=== PATIENT | female | born 1945 | race Caucasian/White ===

== ENCOUNTER 2018-10-24 12:27 | Inpatient (IN) | payer OTHER ==
--- NOTE | 2018-10-24 12:48 | PDOC ---
Rapid Medical Evaluation Time Seen by Provider: 10/24/18 12:37 Medical Evaluation: Allergies Allergy/AdvReac Type Severity Reaction Status Date / Time Penicillins Allergy Verified 07/19/13 14:00 10/24/18 12:37 I have seen and briefly examined the patient The patient is a 73 y/o F who presents to the ER after receiving a phone call from Dr. Pastor for low H&H. Asymptomatic at this time Exam: Ambulatory, pale, Lungs CTAB Orders: Labs, EKG, CXR, T&S Pt to proceed to the ER for further evaluation Discharge Disposition - Diagnosis Abnormal laboratory test - Referrals - Patient Instructions - Post Discharge Activity
[2018-10-24 15:21] LABS: EPI CELLS 0.4 /HPF (0-5/HPF); HYALINE CASTS 0 /lpf (0-8); PH,URINE 5.5 (5.0-8.0); URINE APPEARANCE CLEAR; URINE BACTERIA 25.9 /hpf (NEGATIVE); URINE BILIRUBIN NEGATIVE (NEGATIVE); URINE COLOR YELLOW; URINE GLUCOSE (UA) NEGATIVE (NEGATIVE); URINE KETONE NEGATIVE (NEGATIVE); URINE LEUK ESTERASE 1+ (NEGATIVE); URINE NITRITE NEGATIVE (NEGATIVE); URINE PROTEIN NEGATIVE (NEGATIVE); URINE RBC 2 /hpf (0-4); URINE UROBILINOGEN 0.2 mg/dL (0.2-1.0); URINE WBC 3 /hpf (0-5)
[2018-10-24 15:32] LABS: INR 0.97 (0.83-1.09); PROTHROMBIN TIME (PATIENT) 11.4 SEC (9.7-13.0)
[2018-10-24 15:46] LABS: ALBUMIN 3.8 g/dl (3.4-5.0); BILIRUBIN,TOTAL 0.3 mg/dL (0.2-1); BLOOD UREA NITROGEN 31.7 mg/dL (7-18); CALCIUM 8.9 mg/dL (8.5-10.1); POTASSIUM 4.3 mmol/L (3.5-5.1); TOT PROT 6.7 g/dl (6.4-8.2)
[2018-10-24 16:01] LABS: BASO % 1.1 % (0-2.0); EOS % 2.9 % (0-4.5); HEMATOCRIT 23.1 % (32.4-45.2); LYMPH % 23.4 % (8-40); MCHC 27.6 g/dl (32.0-36.0); MEAN PLT VOLUME 8.7 fl (7.5-11.1); MONO % 9.3 % (3.8-10.2); NEUT % 63.3 % (42.8-82.8); PLATELET COUNT 353 K/MM3 (134-434); RBC 3.67 M/mm3 (3.60-5.2); RDW 21.4 % (11.6-15.6); WHITE BLOOD COUNT 5.2 K/mm3 (4.0-10.0)
[2018-10-24 16:03] LABS: MCH 17.4 pg (25.7-33.7)
[2018-10-24 16:05] LABS: HEMOGLOBIN 6.4 GM/dL (10.7-15.3)
[2018-10-24 16:55] LABS: ANISOCYTOSIS 3+; MACROCYTOSIS 0; OVALOCYTE 1+; PLATELET ESTIMATE NORMAL
[2018-10-24] MEDS ORDERED: PANTOPRAZOLE SODIUM 40 MG VIAL IVPUSH ONE ×2 (18:55→22:01)
--- NOTE | 2018-10-24 19:16 | PDOC ---
History of Present Illness - History of Present Illness Initial Comments: Ms. Fernandez is a 73F sent to the ED by her PCP (Dr. Carbajal) for abnormal labs. She reports that she was scheduled for a podiatric surgery next week and went to her PCP last week for pre-operative clearance. Today Dr. Carbajal called her and stated that her hemoglobin was 6.4 and instructed her to go to the ED. She reports fatigue and shortness of breath on exertion over the past week. Denies headache, dizziness. Denies hemoptysis, hematemesis, hematochezia, melena. Reports limited fruits and vegetables in her diet. Reports taking 5 advil pills QD. PMH: HTN, anxiety SocHx: 18 pack year smoking hx <Rob Sepulveda - Last Filed: 10/24/18 21:50> <Lindsey Key - Last Filed: 10/24/18 22:07> - General Chief Complaint: Blood Transfusion Stated Complaint: SENT BY PCP / DX ANEMIA Time Seen by Provider: 10/24/18 15:00 Past History - Past Medical History Anemia: No Asthma: No Cancer: No Cardiac Disorders: No CVA: No COPD: No CHF: No Dementia: No Diabetes: No GI Disorders: No Disorders: No HTN: Yes (on medication) Hypercholesterolemia: Yes (on meds) Kidney Stones: No Liver Disease: No Seizures: No Other medical history: TIA - Surgical History Abdominal Surgery: Yes (hysterectomy) Appendectomy: No Cardiac Surgery: No Cholecystectomy: No Lung Surgery: No Neurologic Surgery: No Orthopedic Surgery: Yes (SURGERY ON RT. SHOULDER 5 YRS. 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,last drink 1 yo) Drug/Substance Use Hx: Yes ( started a few years ago,then substited for Xanax 1 yo.) Substance Use Type: Cocaine, Opiates, Tranquilizers Hx Substance Use Treatment: Yes (completed 28 days [place] program about 9 yo.) <Rob Sepulveda - Last Filed: 10/24/18 21:50> <Lindsey Key - Last Filed: 10/24/18 22:07> - Past Medical History Allergies/Adverse Reactions: Allergies Allergy/AdvReac Type Severity Reaction Status Date / Time Penicillins Allergy Verified 07/19/13 14:00 Home Medications: Ambulatory Orders Atorvastatin Ca [Lipitor] 20 mg PO HS 07/24/13 Lisinopril [Prinivil] 10 mg PO DAILY 07/24/13 Metoprolol Succinate [Toprol XL -] 50 mg PO BID 07/24/13 Pantoprazole Sodium [Protonix -] 40 mg PO DAILY 07/24/13 Escitalopram Oxalate [Lexapro -] 10 mg PO DAILY 10/24/18 Review of Systems - Review of Systems Is the patient limited Khmer proficient: No Constitutional: Yes: See HPI, Malaise. No: Fever, Loss of Appetite, Night Sweats, Weakness, Unintentional Wgt. Loss HEENTM: Yes: See HPI. No: Nose Bleeding, Mouth Pain, Dental Problems Respiratory: Yes: See HPI, SOB with Exertion. No: Cough, SOB at Rest Cardiac (ROS): Yes: See HPI, Edema. No: Chest Pain, Irregular Heart Rate, Lightheadedness ABD/GI: Yes: See HPI. No: Abdominal Distended, Abd. Pain w/ defecation, Blood Streaked Bowels, Constipated, Diarrhea, Rectal Bleeding, Tarry Stools : Yes: See HPI. No: Dysuria, Discharge Musculoskeletal: Yes: See HPI, Muscle Pain (bilateral lower extremities ). No: Back Pain Integumentary: Yes: See HPI. No: Bruising Neurological: Yes: See HPI. No: Headache, Dizziness Endocrine: No: Symptoms Reported Hematologic/Lymphatic: Yes: Anemia <Rob Sepulveda - Last Filed: 10/24/18 21:50> *Physical Exam - Vital Signs Last Vital Signs Temp Pulse Resp BP Pulse Ox 98.2 F 85 18 121/68 98 10/24/18 18:44 10/24/18 18:44 10/24/18 18:48 10/24/18 18:44 10/24/18 18:48 - Physical Exam General Appearance: Yes: Appropriately Dressed, Obese. No: Mild Distress HEENT: positive: EOMI, KASSI. negative: Pale Conjunctivae Neck: positive: Trachea midline. negative: Tender Respiratory/Chest: positive: Lungs Clear, Normal Breath Sounds. negative: Chest Tender, Respiratory Distress Cardiovascular: positive: Regular Rhythm, Regular Rate Vascular Pulses: Dorsalis-Pedis (R): 2+, Doralis-Pedis (L): 2+ Gastrointestinal/Abdominal: positive: Normal Bowel Sounds, Soft. negative: Tender Rectal Exam: positive: heme positive stool Musculoskeletal: positive: Normal Inspection. negative: CVA Tenderness Extremity: positive: Normal Capillary Refill, Pedal Edema, Calf Tenderness Integumentary: positive: Normal Color, Dry, Warm Neurologic: positive: Fully Oriented, Alert, Normal Response, Motor Strength 5/5 <Rob Sepulveda - Last Filed: 10/24/18 21:50> - Vital Signs Last Vital Signs Temp Pulse Resp BP Pulse Ox 98.0 F 90 20 124/52 L 100 10/24/18 21:07 10/24/18 21:07 10/24/18 21:07 10/24/18 21:07 10/24/18 21:07 <Lindsey Key - Last Filed: 10/24/18 22:07> ED Treatment Course - LABORATORY CBC & Chemistry Diagram: 10/24/18 15:05 10/24/18 15:05 - ADDITIONAL ORDERS Additional order review: Laboratory Results 10/24/18 10/24/18 10/24/18 18:20 15:05 15:05 PT with INR INR Sodium 143 Potassium 4.3 Chloride 113 H Carbon Dioxide 22 Anion Gap 7 L BUN 31.7 H Creatinine 1.0 Est GFR (CKD-EPI)AfAm 64.27 Est GFR (CKD-EPI)NonAf 55.45 Random Glucose 88 Calcium 8.9 Total Bilirubin 0.3 AST 8 L ALT 13 Alkaline Phosphatase 60 Total Protein 6.7 Albumin 3.8 Urine Color Urine Appearance Urine pH Ur Specific [place] Urine Protein Urine Glucose (UA) Urine Ketones Urine Blood Urine Nitrite Urine Bilirubin Urine Urobilinogen Ur Leukocyte Esterase Urine WBC (Auto) Urine RBC (Auto) Urine Casts (Auto) U Epithel Cells (Auto) Urine Bacteria (Auto) Stool Occult Blood Positive Blood Type AB NEGATIVE Antibody Screen Negative Crossmatch See Detail 10/24/18 10/24/18 15:05 15:05 PT with INR 11.40 INR 0.97 Sodium Potassium Chloride Carbon Dioxide Anion Gap BUN Creatinine Est GFR (CKD-EPI)AfAm Est GFR (CKD-EPI)NonAf Random Glucose Calcium Total Bilirubin AST ALT Alkaline Phosphatase Total Protein Albumin Urine Color Yellow Urine Appearance Clear Urine pH 5.5 D Ur Specific [place] 1.012 Urine Protein Negative Urine Glucose (UA) Negative Urine Ketones Negative Urine Blood Negative Urine Nitrite Negative Urine Bilirubin Negative Urine Urobilinogen 0.2 Ur Leukocyte Esterase 1+ H Urine WBC (Auto) 3 Urine RBC (Auto) 2 Urine Casts (Auto) 0 U Epithel Cells (Auto) 0.4 Urine Bacteria (Auto) 25.9 Stool Occult Blood Blood Type Antibody Screen Crossmatch 10/24/18 15:05 RBC 3.67 MCV 63.0 L MCHC 27.6 L RDW 21.4 H MPV 8.7 D Neutrophils % 63.3 Lymphocytes % 23.4 Monocytes % 9.3 Eosinophils % 2.9 Basophils % 1.1 <Rob Sepulveda - Last Filed: 10/24/18 21:50> - LABORATORY CBC & Chemistry Diagram: 10/24/18 15:05 10/24/18 15:05 - ADDITIONAL ORDERS Additional order review: Laboratory Results 10/24/18 10/24/18 10/24/18 18:30 18:30 18:20 PT with INR INR Sodium Potassium Chloride Carbon Dioxide Anion Gap BUN Creatinine Est GFR (CKD-EPI)AfAm Est GFR (CKD-EPI)NonAf Random Glucose Calcium Total Bilirubin AST ALT Alkaline Phosphatase Creatine Kinase 101 Troponin I < 0.02 Total Protein Albumin Urine Color Urine Appearance Urine pH Ur Specific [place] Urine Protein Urine Glucose (UA) Urine Ketones Urine Blood Urine Nitrite Urine Bilirubin Urine Urobilinogen Ur Leukocyte Esterase Urine WBC (Auto) Urine RBC (Auto) Urine Casts (Auto) U Epithel Cells (Auto) Urine Bacteria (Auto) Stool Occult Blood Positive Blood Type AB NEGATIVE Antibody Screen Crossmatch 10/24/18 10/24/18 10/24/18 15:05 15:05 15:05 PT with INR INR Sodium 143 Potassium 4.3 Chloride 113 H Carbon Dioxide 22 Anion Gap 7 L BUN 31.7 H Creatinine 1.0 Est GFR (CKD-EPI)AfAm 64.27 Est GFR (CKD-EPI)NonAf 55.45 Random Glucose 88 Calcium 8.9 Total Bilirubin 0.3 AST 8 L ALT 13 Alkaline Phosphatase 60 Creatine Kinase Troponin I Total Protein 6.7 Albumin 3.8 Urine Color Yellow Urine Appearance Clear Urine pH 5.5 D Ur Specific [place] 1.012 Urine Protein Negative Urine Glucose (UA) Negative Urine Ketones Negative Urine Blood Negative Urine Nitrite Negative Urine Bilirubin Negative Urine Urobilinogen 0.2 Ur Leukocyte Esterase 1+ H Urine WBC (Auto) 3 Urine RBC (Auto) 2 Urine Casts (Auto) 0 U Epithel Cells (Auto) 0.4 Urine Bacteria (Auto) 25.9 Stool Occult Blood Blood Type AB NEGATIVE Antibody Screen Negative Crossmatch See Detail 10/24/18 15:05 PT with INR 11.40 INR 0.97 Sodium Potassium Chloride Carbon Dioxide Anion Gap BUN Creatinine Est GFR (CKD-EPI)AfAm Est GFR (CKD-EPI)NonAf Random Glucose Calcium Total Bilirubin AST ALT Alkaline Phosphatase Creatine Kinase Troponin I Total Protein Albumin Urine Color Urine Appearance Urine pH Ur Specific [place] Urine Protein Urine Glucose (UA) Urine Ketones Urine Blood Urine Nitrite Urine Bilirubin Urine Urobilinogen Ur Leukocyte Esterase Urine WBC (Auto) Urine RBC (Auto) Urine Casts (Auto) U Epithel Cells (Auto) Urine Bacteria (Auto) Stool Occult Blood Blood Type Antibody Screen Crossmatch 10/24/18 15:05 RBC 3.67 MCV 63.0 L MCHC 27.6 L RDW 21.4 H MPV 8.7 D Neutrophils % 63.3 Lymphocytes % 23.4 Monocytes % 9.3 Eosinophils % 2.9 Basophils % 1.1 - RADIOLOGY Radiology Studies Ordered: Category Date Time Status CHEST PA & LAT [RAD] Stat Radiology 10/24/18 19:09 Ordered - Medications Given in the ED: ED Medications Discontinued Medications Generic Name Dose Route Start Last Admin Trade Name Vasuq PRN Reason Stop Dose Admin Pantoprazole Sodium 40 mg 10/24/18 18:55 10/24/18 20:00 Protonix Iv IVPUSH 10/24/18 18:56 40 mg ONCE ONE Administration <Lindsey Key - Last Filed: 10/24/18 22:07> Medical Decision Making - Medical Decision Making 10/24/18 1700 73F sent here by PCP for hemoglobin of 6.4. Reports SOB on exertion and fatigue , no other symptoms. Heme occult stool test was positive. We obtained CBC, CMP, CXR, and type and screen. Administered protonix. Spoke with Dr. Carbajal, the patient's PCP, who states his concern for the patient's low hemoglobin and would like the patient admitted for blood transfusion. We obtained consent for blood transfusion and plan to admit to the hospitalist service. This patient was signed out to Dr. Key and Dr. Lawrence. <Rob Sepulveda - Last Filed: 10/24/18 21:50> *DC/Admit/Observation/Transfer <Rob Sepulveda - Last Filed: 10/24/18 21:50> - Discharge Dispostion Decision to Admit order: Yes <Lindsey Key - Last Filed: 10/24/18 22:07> Diagnosis at time of Disposition: Abnormal laboratory test GI bleed Qualifiers: GI bleed type/associated pathology: unspecified gastrointestinal hemorrhage type Qualified Code(s): K92.2 - Gastrointestinal hemorrhage, unspecified Anemia Qualifiers: Anemia type: other cause Other causes of anemia: other cause, not classified Qualified Code(s): D64.89 - Other specified anemias - Discharge Dispostion Condition at time of disposition: Good
--- NOTE | 2018-10-24 19:38 | PDOC ---
Documentation entered by Hernan Gordon SCRIBE, acting as scribe for Lindsey Key MD. Lindsey Key MD: This documentation has been prepared by the Evan vivar Joel, SCRIBE, under my direction and personally reviewed by me in its entirety. I confirm that the documentation accurately reflects all work, treatment, procedures, and medical decision making performed by me. Attending Attestation - Resident Resident Name: Rob Sepulveda - ED Attending Attestation I have performed the following: I have examined & evaluated the patient, The case was reviewed & discussed with the resident, I agree w/resident's findings & plan, Exceptions are as noted - HPI HPI: 10/24/18 18:40 The patient is a 73 year old female with a significant PMH of HTN and TIA who presents to the emergency department from Dr. Sawyer office for evaluation of low H&H to receive a blood transfusion. The patient endorses some tiredness and SOB for 1 week but denies other complaints. The patient denies chest pain, headache and dizziness. Denies fever, chills, nausea, vomit, diarrhea and constipation. Denies dysuria, frequency, urgency and hematuria. Allergies: Penicillins Past surgical history: Hysterectomy. Social history: No reported cigarette, alcohol, or drug use. - Physicial Exam PE: 10/24/18 18:44 73-year-old female sent in by Dr. Carbajal for admission for anemia 73-year-old female resting on the gurney with no specific complaints at this time. Head normocephalic/atraumatic Eyes eomi,jerome , pale conjunctiva lungs cta b/l cvs [id number] abdomen protuberant,nontender rectal exam normal tone,no active bleeding skin warm and dry extremities bilateral LE edema, not pitting neuro axox3,ambulatory psych appropriate - Medical Decision Making 10/24/18 18:[address] Carbajal and he requested admission w hospitalist for blood transfusions and further workup pt signed consent for blood transfusion
[2018-10-24] MEDS ORDERED: PANTOPRAZOLE SODIUM 40 MG/100 ML BAG IVPB ONE ×2 (20:04→23:22)
--- NOTE | 2018-10-24 21:27 | HP ---
CHIEF COMPLAINT: asymptomatic anemia PCP: Solomon HISTORY OF PRESENT ILLNESS: 73F with pmh of HTN, HLD, h/o R-sided CVA, external hemorrhoids, chronic anxiety , chronic b/l knee pain referred to [facility] by PCP for outpatient CBC showing Hgb ~6.2. Patient was getting pre-op workup for Hammer-Toe surgery. Has complaint of fatigue, weakness for a few days. Has SOB with climbing up > 1flight of stairs, x1mo. Takes a handful of advils(5+ tablets) daily x1mo for chronic b/l knee pain. Denies hematemesis, melena, hematochezia, abd pain, diarrhea. Positive for chronic constipation. One episode of BRBPR in 2016. Reports having colonoscopies in the past. Colonscopy+EGD([facility], 2016) for BRBPR, with patient recalling no abn. Colonoscopy([facility], 2013) during bout of appendicitis, patient recalls no abn. ER course was notable for: (1) Hgb ~6.4 (2) (+)FOBT (3) EKG -- NSR (4) pRBC x2 ordered -- pending transfusion Recent Travel: PAST MEDICAL HISTORY: HTN, HLD, external hemorrhoids, chronic anxiety, chronic b/l knee pain PAST SURGICAL HISTORY: b/l knee, Left breast lumpectomy Social History: Smokinppd x 40ys, quit 10ys prior Alcohol: social Drugs: denies Family History: Colon Ca(mother dx @~60y/o) Allergies: Pencillin(claims peripheral swelling) Penicillins Allergy (Verified 07/19/13 14:00) HOME MEDICATIONS: Home Medications Medication Instructions Recorded Atorvastatin Ca [Lipitor] 20 mg PO HS 07/24/13 Lisinopril [Prinivil] 10 mg PO DAILY 07/24/13 Metoprolol Succinate [Toprol XL -] 50 mg PO BID 07/24/13 Pantoprazole Sodium [Protonix -] 40 mg PO DAILY 07/24/13 Escitalopram Oxalate [Lexapro -] 10 mg PO DAILY 10/24/18 REVIEW OF SYSTEMS CONSTITUTIONAL: positive for generalized weakness, malaise, lightheadedness Absent: fever, chills, diaphoresis HEENT: Absent: visual changes CARDIOVASCULAR: Absent: chest pain, palpitations, irregular heart rate, lightheadedness, peripheral edema RESPIRATORY: Absent: cough, shortness of breath, dyspnea with exertion, orthopnea, wheezing, stridor, hemoptysis GASTROINTESTINAL: Absent: abdominal pain, abdominal distension, nausea, vomiting, diarrhea, constipation, melena, hematochezia GENITOURINARY: Absent: dysuria, frequency, hematuria MUSCULOSKELETAL: chronic b/l knee pain Absent: myalgia, arthralgia, joint swelling, back pain, neck pain SKIN: Absent: pallor HEMATOLOGIC/IMMUNOLOGIC: Absent: easy bleeding, easy bruising ENDOCRINE: Absent: unexplained weight gain, unexplained weight loss, heat intolerance, cold intolerance NEUROLOGIC: Absent: headache, focal weakness or paresthesias, dizziness, unsteady gait, seizure, mental status changes, bladder or bowel incontinence PSYCHIATRIC: positive for chronic anxiety Absent: depression, suicidal or homicidal ideation, hallucinations. PHYSICAL EXAMINATION Vital Signs - 24 hr 10/24/18 10/24/18 10/24/18 12:36 18:44 18:48 Temperature 97.7 F 98.2 F Pulse Rate 84 Pulse Rate [ 85 Right Radial] Respiratory 18 18 18 Rate Blood Pressure 145/69 Blood Pressure 121/68 [Left Arm] O2 Sat by Pulse 98 98 98 Oximetry (%) GENERAL: Awake, alert, and fully oriented, in no acute distress. HEAD: Normal with no signs of trauma. EYES: extraocular movements intact, sclera anicteric, conjunctiva clear. No lid lag. Pale conjunctiva EARS, NOSE, THROAT: Moist mucous membranes. NECK: Normal range of motion, supple without lymphadenopathy, JVD, or masses. LUNGS: Breath sounds equal, clear to auscultation bilaterally. No wheezes, and no crackles. No accessory muscle use. HEART: Regular rate and rhythm, normal S1 and S2 without murmur, rub or gallop. ABDOMEN: Soft, nontender, not distended, nonTTP [id number], no guarding, no rebound, no masses. RECTAL: external mucosal folds, no blood in stool, no rectal masses palpated MUSCULOSKELETAL: Normal range of motion at all joints. No bony deformities or tenderness. No CVA tenderness. UPPER EXTREMITIES: 2+ pulses, warm, well-perfused. No cyanosis. No clubbing. No peripheral edema. LOWER EXTREMITIES: 2+ pulses, warm, well-perfused. No calf tenderness. No peripheral edema. NEUROLOGICAL: moving all extremities spontaneously, sensation and muscle strength are grossly normal PSYCHIATRIC: Cooperative. Good eye contact. Appropriate mood and affect. SKIN: Warm, dry, normal turgor, no rashes or lesions noted, normal capillary refill. Laboratory Results - last 24 hr 10/24/18 10/24/18 10/24/18 15:05 15:05 15:05 WBC 5.2 RBC 3.67 Hgb 6.4 L* Hct 23.1 L D MCV 63.0 L MCH 17.4 L D MCHC 27.6 L RDW 21.4 H Plt Count 353 D MPV 8.7 D Absolute Neuts (auto) 3.3 Neutrophils % 63.3 Lymphocytes % 23.4 Monocytes % 9.3 Eosinophils % 2.9 Basophils % 1.1 Nucleated RBC % 0 Hypochromia 2+ Platelet Estimate Normal Polychromasia 1+ Poikilocytosis 1+ Anisocytosis 3+ Microcytosis 3+ Macrocytosis 0 Ovalocytes 1+ Schistocytes 1+ PT with INR 11.40 INR 0.97 Sodium Potassium Chloride Carbon Dioxide Anion Gap BUN Creatinine Est GFR (CKD-EPI)AfAm Est GFR (CKD-EPI)NonAf Random Glucose Calcium Total Bilirubin AST ALT Alkaline Phosphatase Creatine Kinase Troponin I Total Protein Albumin Urine Color Yellow Urine Appearance Clear Urine pH 5.5 D Ur Specific [place] 1.012 Urine Protein Negative Urine Glucose (UA) Negative Urine Ketones Negative Urine Blood Negative Urine Nitrite Negative Urine Bilirubin Negative Urine Urobilinogen 0.2 Ur Leukocyte Esterase 1+ H Urine WBC (Auto) 3 Urine RBC (Auto) 2 Urine Casts (Auto) 0 U Epithel Cells (Auto) 0.4 Urine Bacteria (Auto) 25.9 Stool Occult Blood Blood Type Antibody Screen Crossmatch 10/24/18 10/24/18 10/24/18 15:05 15:05 18:20 WBC RBC Hgb Hct MCV MCH MCHC RDW Plt Count MPV Absolute Neuts (auto) Neutrophils % Lymphocytes % Monocytes % Eosinophils % Basophils % Nucleated RBC % Hypochromia Platelet Estimate Polychromasia Poikilocytosis Anisocytosis Microcytosis Macrocytosis Ovalocytes Schistocytes PT with INR INR Sodium 143 Potassium 4.3 Chloride 113 H Carbon Dioxide 22 Anion Gap 7 L BUN 31.7 H Creatinine 1.0 Est GFR (CKD-EPI)AfAm 64.27 Est GFR (CKD-EPI)NonAf 55.45 Random Glucose 88 Calcium 8.9 Total Bilirubin 0.3 AST 8 L ALT 13 Alkaline Phosphatase 60 Creatine Kinase Troponin I Total Protein 6.7 Albumin 3.8 Urine Color Urine Appearance Urine pH Ur Specific [place] Urine Protein Urine Glucose (UA) Urine Ketones Urine Blood Urine Nitrite Urine Bilirubin Urine Urobilinogen Ur Leukocyte Esterase Urine WBC (Auto) Urine RBC (Auto) Urine Casts (Auto) U Epithel Cells (Auto) Urine Bacteria (Auto) Stool Occult Blood Positive Blood Type AB NEGATIVE Antibody Screen Negative Crossmatch See Detail 10/24/18 10/24/18 18:30 18:30 WBC RBC Hgb Hct MCV MCH MCHC RDW Plt Count MPV Absolute Neuts (auto) Neutrophils % Lymphocytes % Monocytes % Eosinophils % Basophils % Nucleated RBC % Hypochromia Platelet Estimate Polychromasia Poikilocytosis Anisocytosis Microcytosis Macrocytosis Ovalocytes Schistocytes PT with INR INR Sodium Potassium Chloride Carbon Dioxide Anion Gap BUN Creatinine Est GFR (CKD-EPI)AfAm Est GFR (CKD-EPI)NonAf Random Glucose Calcium Total Bilirubin AST ALT Alkaline Phosphatase Creatine Kinase 101 Troponin I < 0.02 Total Protein Albumin Urine Color Urine Appearance Urine pH Ur Specific [place] Urine Protein Urine Glucose (UA) Urine Ketones Urine Blood Urine Nitrite Urine Bilirubin Urine Urobilinogen Ur Leukocyte Esterase Urine WBC (Auto) Urine RBC (Auto) Urine Casts (Auto) U Epithel Cells (Auto) Urine Bacteria (Auto) Stool Occult Blood Blood Type AB NEGATIVE Antibody Screen Crossmatch ASSESSMENT/PLAN: 73F with asymptomatic anemia likely 2/2 to chronic NSAID usage. # microcytic anemia > (+)FOBT - HOLD home NSAID - NPO - transfuse pRBC x2 - fu post-transfusion CBC - pantoprazole 80mg IV, then pantoprazole gtt - appreciate GI consult recommendations, or possible upper GI NEURO: # chronic anxiety - HOLD home Xanax # chronic depression - HOLD home escitalopram # h/o Right-sided CVA - restart home atoravstatin prior to discharge CARDIO: # no acutely active issues # chronic HTN # chronic HLD - cw home metoprolol 50mg BID - HOLD home lisinopril - HOLD home atorvastatin - monitor vitals q4h RESPIR: # no acutely active issues - monitor vitals q4h - titrate pO2 >92% GI: # upper GIB - pending GI consult - NPO - pantoprazole gtt FEN: - pantroprazole gtt - ADAT after GI consultation RENAL: > UA with (-)nitrite, 1+LE, WBC~3 - monitor and replete lytes HEME: # microcytic anemia possibly 2/2 chronic upper GI bleed - fu post-transfusion CBC DISPO: - to be determined Ed Morales, DO PGY-1 Medicine, PM Float [id number] 10/24/18 Visit type - Emergency Visit Emergency Visit: Yes ED Registration Date: 10/24/18 Care time: The patient presented to the Emergency Department on the above date and was hospitalized for further evaluation of their emergent condition. - New Patient This patient is new to me today: Yes Date on this admission: 10/25/18 - Critical Care Critical Care patient: No
--- NOTE | 2018-10-24 21:51 | PN ---
Teaching Attending Note Name of Resident: Ed Morales ATTENDING PHYSICIAN STATEMENT I saw and evaluated the patient. I reviewed the resident's note and discussed the case with the resident. I agree with the resident's findings and plan as documented. SUBJECTIVE: Seen and examined; please refer to resident note for further historical information. Briefly, this is a 73 y/o female sent in by her PCP for low Hb. She has no complaints but when pressed has been having stereotyped anemic symptoms 3 colonoscopies in the past reported as normal; no EGD report available but states she had one without gross abnormalities. No FH of GI malig. Denies any GI/vaginal bleeding but does have a FOBT+. Has been taking a good amount of advil for 6+ weeks (5-6/day) for her chronic leg and knee pain (has not seen ortho, no recent trauma, etc.). 2 units ordered in ER and they spoke with GI alkylation operator; she will be brought to the floor on the medicine service. 10 sys ROS done and negative aside from HPI PMH (HTN, HLD, Anxiety, Chronic Pain), PSH, FH, SH reviewed Home Medications Medication Instructions Recorded Atorvastatin Ca [Lipitor] 20 mg PO HS 07/24/13 Lisinopril [Prinivil] 10 mg PO DAILY 07/24/13 Metoprolol Succinate [Toprol XL -] 50 mg PO BID 07/24/13 Pantoprazole Sodium [Protonix -] 40 mg PO DAILY 07/24/13 Escitalopram Oxalate [Lexapro -] 10 mg PO DAILY 10/24/18 OBJECTIVE: VS, labs, imaging reviewed NAD, AAO, resting comfortably in bed RRR s1/2 no mgr Lungs CTAB, w/ sym exp NT ND +BS CN2-12 wnl, no fnd Legs enlarged with bilateral chronic dependent edema that is unchanged from baseline. EKG reviewed CXR reviewed ASSESSMENT AND PLAN: Patient sent in by PCP for anemia found to have a Hb 6 with likely UGIB 2/2 NSAID use; Dr Fine is following. Patient to be admitted to medicine. 1) UGIB -NPO, xf 2 units ordered in ER. Followup post XF CBC and closely trend Hb. Will need EGD with gastroenterology. Keeping on protonix drip, holding all AC. Not tachycardic and has not had any bleeding here. Would be helpful to obtain her old scope reports. 2) HTN -Hold CHIP; PRN management until resumes PO -Continue MS to avoid BB WD 3) Depression -Hold lexapro 4) HLD -Hold Atorva
[2018-10-24] MEDS ORDERED: ATORVASTATIN CA 20 MG TABLET (FP) PO SCH (22:00)
[2018-10-25] MEDS: PANTOPRAZOLE SODIUM 80 MG in SODIUM CHLORIDE 100 ML IVPB SCH ×3 (00:03→19:36)
[2018-10-25 02:25] LABS: HEMATOCRIT 23.1 % (32.4-45.2); MCH 19.1 pg (25.7-33.7); MCHC 29.4 g/dl (32.0-36.0); MEAN CELL VOLUME 64.9 fl (80-96); MEAN PLT VOLUME 8.5 fl (7.5-11.1); PLATELET COUNT 311 K/MM3 (134-434); RBC 3.56 M/mm3 (3.60-5.2); RDW 24.6 % (11.6-15.6); WHITE BLOOD COUNT 5.9 K/mm3 (4.0-10.0)
[2018-10-25 02:26] LABS: HEMOGLOBIN 6.8 GM/dL (10.7-15.3)
[2018-10-25] MEDS ORDERED: traZODone HCL 50 MG TABLET (FP) PO ONE (04:08)
[2018-10-25 08:36] LABS: BLOOD UREA NITROGEN 23.8 mg/dL (7-18); CALCIUM 8.7 mg/dL (8.5-10.1); CREATININE 0.9 mg/dL (0.55-1.3); MAGNESIUM 2.5 mg/dL (1.8-2.4); PHOSPHOROUS 3.6 mg/dL (2.5-4.9); POTASSIUM 4.3 mmol/L (3.5-5.1)
[2018-10-25 09:00] LABS: HEMATOCRIT 24.9 % (32.4-45.2); HEMOGLOBIN 7.4 GM/dL (10.7-15.3); MCHC 29.9 g/dl (32.0-36.0); MEAN CELL VOLUME 65.9 fl (80-96); MEAN PLT VOLUME 8.5 fl (7.5-11.1); PLATELET COUNT 283 K/MM3 (134-434); RBC 3.77 M/mm3 (3.60-5.2); RDW 25.4 % (11.6-15.6); WHITE BLOOD COUNT 5.1 K/mm3 (4.0-10.0)
[2018-10-25 09:07] LABS: MCH 19.7 pg (25.7-33.7)
[2018-10-25] MEDS ORDERED: LISINOPRIL 10 MG TABLET (FP) PO SCH (10:00)
[2018-10-25] MEDS ORDERED: ESCITALOPRAM OXALATE 10 MG TABLET (FP) PO SCH (10:00)
--- NOTE | 2018-10-25 10:44 | EKG ---
Test Reason : Blood Pressure : / mmHG Vent. Rate : 094 BPM Atrial Rate : 094 BPM P-R Int : 162 ms QRS Dur : 076 ms QT Int : 360 ms P-R-T Axes : 061 -08 015 degrees QTc Int : 450 ms NORMAL SINUS RHYTHM POSSIBLE LEFT ATRIAL ENLARGEMENT LEFT VENTRICULAR HYPERTROPHY ABNORMAL ECG NO PREVIOUS ECGS AVAILABLE Confirmed by SOL SANTANA, LEONARDO ([id number]) on 10/25/2018 10:43:48 AM Referred By: Confirmed By:LEONARDO HORTON MD
--- NOTE | 2018-10-25 11:00 | PN ---
Progress Note (short form) - Note Progress Note: admitted for anemia-noted incidentally on preop testing for hammertoe surgery received 2 units of PRBC overnight FOBT positive in er has been taking 4+ advils daily for arthritic pains CBC, BMP 10/25/18 08:38 10/25/18 07:44 Vital Signs Period Temp Pulse Resp BP Sys/Germain Pulse Ox Last 24 Hr 97.7 F-98.2 F 74-90 18-20 111-164/51-93 98-100 S1S2 RRR lungs cta abd soft nontender +bs no edema Anemia Depression HTN Obesity Osteoarthritis h/o CVA without residual deficits monitor h/h GI eval requested stop NSAIDs PPI Full liquid diet
--- NOTE | 2018-10-25 12:10 | CON.GI ---
Consult Consult Specialty:: Gastroenterology Referred by:: Dr Roman Reason for Consultation:: Microcytic anemia - History of Present Illness Chief Complaint: Sent to ER after Dr Carbajal discovered a Hb of 6.4 History of Present Illness: 73F was referred to the ER by Dr Carbajal after a CBC revealed a Hb of 6.4. She was seeking a preoperative clearance for podiatruic surgery. She denies any overt bleeding or melena. She moves her bowels daily. She take 5-6 Advil daily for arthritis pain. No abdominal pain. She does admit to fatigue and PHELPS recently. She has had 3 colonoscopies as her mother of coon cancer. She denies ever having had any polyps removed. She last had a colonoscopy 6 years ago at [facility] in [facility]. She has never had an EGD. She stopped drinking alcohol 4 years ago when her PMD attributed her fatty liver to alcohol. - History Source History Provided By: Patient Limitations to Obtaining History: No Limitations - Past Medical History ACTIVITIES LEADER: Yes: TIA Cardio/Vascular: Yes: HTN, Hyperlipdemia Hepatobiliary: Yes: Other (fatty liver) ...LMP: 04/25/85 Psych: Yes: Depression Rheumatology: Yes: Other (Osteoarthritis) Endocrine: Yes: Diabetes Mellitus, Other (morbid obesity) - Past Surgical History Past Surgical History: Yes: Breast Biopsy (Left breast lumpectomy for benign disease), Colonoscopy, Hysterectomy (TAHBSO done as BSO followed by [facility] for bleeding. 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 [employer] Place of : [facility] [place] History of Recent Travel: No Home Medications - Allergies Allergies/Adverse Reactions: Allergies Allergy/AdvReac Type Severity Reaction Status Date / Time Penicillins Allergy Verified 07/19/13 14:00 - Home Medications Home Medications: Ambulatory Orders Atorvastatin Ca [Lipitor] 20 mg PO HS 07/24/13 Lisinopril [Prinivil] 10 mg PO DAILY 07/24/13 Metoprolol Succinate [Toprol XL -] 50 mg PO BID 07/24/13 Pantoprazole Sodium [Protonix -] 40 mg PO DAILY 07/24/13 Escitalopram Oxalate [Lexapro -] 10 mg PO DAILY 10/24/18 Family Disease History - Family Disease History Family Disease History: Heart Disease: Father (CHF and ETOH), Mother ( colon cancer in her 60s), CA: Mother, Other: Father, Daughter (psoriatic arthritis) Review of Systems - Review of Systems Constitutional: reports: Lethargy, Malaise, Weakness Eyes: reports: No Symptoms HENT: reports: No Symptoms Neck: reports: No Symptoms Cardiovascular: reports: No Symptoms Respiratory: reports: Exercise Intolerance, SOB on Exertion Gastrointestinal: reports: Other (acid reflux) Musculoskeletal: reports: Joint Pain Physical Exam-GI Vital Signs: Vital Signs Temperature 98 F 10/25/18 07:00 Pulse Rate 74 10/25/18 07:00 Respiratory Rate 20 10/25/18 07:00 Blood Pressure 148/72 10/25/18 07:00 O2 Sat by Pulse Oximetry (%) 98 10/25/18 02:48 CBC,CMP WBC 5.1 K/mm3 (4.0-10.0) 10/25/18 08:38 RBC 3.77 M/mm3 (3.60-5.2) 10/25/18 08:38 Hgb 7.4 GM/dL (10.7-15.3) L 10/25/18 08:38 Hct 24.9 % (32.4-45.2) L 10/25/18 08:38 MCV 65.9 fl (80-96) L 10/25/18 08:38 MCH 19.7 pg (25.7-33.7) L 10/25/18 08:38 MCHC 29.9 g/dl (32.0-36.0) L 10/25/18 08:38 RDW 25.4 % (11.6-15.6) H 10/25/18 08:38 Plt Count 283 K/MM3 (134-434) 10/25/18 08:38 MPV 8.5 fl (7.5-11.1) 10/25/18 08:38 Absolute Neuts (auto) 3.3 K/mm3 (1.5-8.0) 10/24/18 15:05 Neutrophils % 63.3 % (42.8-82.8) 10/24/18 15:05 Lymphocytes % 23.4 % (8-40) 10/24/18 15:05 Monocytes % 9.3 % (3.8-10.2) 10/24/18 15:05 Eosinophils % 2.9 % (0-4.5) 10/24/18 15:05 Basophils % 1.1 % (0-2.0) 10/24/18 15:05 Nucleated RBC % 0 % (0-0) 10/24/18 15:05 Hypochromia 2+ 10/24/18 15:05 Platelet Estimate Normal 10/24/18 15:05 Polychromasia 1+ 10/24/18 15:05 Poikilocytosis 1+ 10/24/18 15:05 Anisocytosis 3+ 10/24/18 15:05 Microcytosis 3+ 10/24/18 15:05 Macrocytosis 0 10/24/18 15:05 Ovalocytes 1+ 10/24/18 15:05 Schistocytes 1+ 10/24/18 15:05 Sodium 145 mmol/L (136-145) 10/25/18 07:44 Potassium 4.3 mmol/L (3.5-5.1) 10/25/18 07:44 Chloride 116 mmol/L (98-107) H 10/25/18 07:44 Carbon Dioxide 22 mmol/L (21-32) 10/25/18 07:44 Anion Gap 7 MMOL/L (8-16) L 10/25/18 07:44 BUN 23.8 mg/dL (7-18) H 10/25/18 07:44 Creatinine 0.9 mg/dL (0.55-1.3) 10/25/18 07:44 Est GFR (CKD-EPI)AfAm 73.00 10/25/18 07:44 Est GFR (CKD-EPI)NonAf 62.99 10/25/18 07:44 Random Glucose 89 mg/dL (74-106) 10/25/18 07:44 Calcium 8.7 mg/dL (8.5-10.1) 10/25/18 07:44 Phosphorus 3.6 mg/dL (2.5-4.9) 10/25/18 07:44 Magnesium 2.5 mg/dL (1.8-2.4) H 10/25/18 07:44 Ferritin 3.5 ng/ml (8-388) L 10/25/18 07:44 Total Bilirubin 0.3 mg/dL (0.2-1) 10/24/18 15:05 AST 8 U/L (15-37) L 10/24/18 15:05 ALT 13 U/L (13-61) 10/24/18 15:05 Alkaline Phosphatase 60 U/L (45-117) 10/24/18 15:05 Creatine Kinase 101 U/L (26-192) 10/24/18 18:30 Troponin I < 0.02 ng/ml (0.00-0.05) 10/24/18 18:30 Total Protein 6.7 g/dl (6.4-8.2) 10/24/18 15:05 Albumin 3.8 g/dl (3.4-5.0) 10/24/18 15:05 Current Medications Generic Name Dose Route Start Last Admin Trade Name Freq PRN Reason Stop Dose Admin Pantoprazole Sodium 80 mg/ 100 mls @ 10 mls/hr 10/24/18 23:00 10/25/18 10:10 Sodium Chloride IVPB 10 mls/hr Q10H NORA Administration 8 MG/HR Lisinopril 10 mg 10/25/18 10:00 Prinivil PO DAILY NORA Metoprolol Succinate 50 mg 10/24/18 22:00 10/25/18 10:10 Toprol Xl - PO 50 mg BID NORA Administration Constitutional: Yes: Calm Eyes: Yes: Conjunctiva Clear HENT: Yes: Normocephalic Neck: Yes: Trachea Midline Cardiovascular: Yes: Regular Rate and Rhythm Respiratory: Yes: CTA Bilaterally Gastrointestinal Inspection: Yes: Scars (healed Pfannensteil incisions) ...Auscultate: Yes: Normoactive Bowel Sounds ...Palpate: Yes: Soft, Other (nontender) ...Rectal Exam: Yes: Guaiac Positive (brown guaiac positive stool) Neurological: Yes: Alert, Oriented Labs: CBC, BMP 10/25/18 08:38 10/25/18 07:44 INR, PTT INR 0.97 (0.83-1.09) 10/24/18 15:05 Problem List - Problems (1) Microcytic anemia Assessment/Plan: Given her heavy NSAID usage I suspect that the anemia will reflect an NSAID related gastric or duodenal ulcer but given her FH a colon cancer also needs to be excluded. Bleeding from vascular ectasias are an alternative possibility. Code(s): D50.9 - IRON DEFICIENCY ANEMIA, UNSPECIFIED (2) Family history of colon cancer in mother Code(s): Z80.0 - FAMILY HISTORY OF MALIGNANT NEOPLASM OF DIGESTIVE ORGANS (3) Osteoarthritis Code(s): M19.90 - UNSPECIFIED OSTEOARTHRITIS, UNSPECIFIED SITE (5) Fatty liver Code(s): K76.0 - FATTY (CHANGE OF) LIVER, NOT ELSEWHERE CLASSIFIED (6) NSAID long-term use Code(s): Z79.1 - [facility] (CURRENT) USE OF NON-STEROIDAL NON-INFLAM (NSAID) (7) Occult blood in stools Code(s): R19.5 - OTHER FECAL ABNORMALITIES Assessment/Plan Assessment: Microcytic anemia with occult bleeding in the setting of heavy NSAID usage suggests ulcer disease FH of colon cancer mandates a repeat colonoscopy Alcoholic fatty liver GERD Plan: Agree with transfusions Continue PPI empirically I have advised an EGD and a colonoscopy and I have informed Gregoria of the potential for such complications as perforation and hemorrhage. She has granted an informed consent. I have scheduled the procedure for 10/27
[2018-10-25 15:36] VITALS: BMI 40.6
[2018-10-26 04:07] LABS: SERUM IRON SATURATION 8 % (15-55); TOTAL IRON BINDING CAPACITY 387 ug/dL (250-450)
[2018-10-26] MEDS ORDERED: PT OWN MED DRAWER 7, Y5N ONE ×3 (05:19→23:36)
[2018-10-26] MEDS: PANTOPRAZOLE SODIUM 80 MG in SODIUM CHLORIDE 100 ML IVPB SCH ×2 (05:43→15:24)
[2018-10-26 06:53] LABS: BASO % 1.1 % (0-2.0); EOS % 2.7 % (0-4.5); HEMATOCRIT 27.5 % (32.4-45.2); HEMOGLOBIN 8.6 GM/dL (10.7-15.3); LYMPH % 22.2 % (8-40); MCH 20.6 pg (25.7-33.7); MCHC 31.1 g/dl (32.0-36.0); MEAN CELL VOLUME 66.2 fl (80-96); MEAN PLT VOLUME 8.5 fl (7.5-11.1); MONO % 12.3 % (3.8-10.2); NEUT % 61.7 % (42.8-82.8); PLATELET COUNT 286 K/MM3 (134-434); RBC 4.16 M/mm3 (3.60-5.2); RDW 25.3 % (11.6-15.6); RETICULOCYTES 2.08 % (0.5-1.5); WHITE BLOOD COUNT 4.6 K/mm3 (4.0-10.0)
[2018-10-26 07:21] LABS: ALBUMIN 3.2 g/dl (3.4-5.0); ALK PHOS 56 U/L (45-117); ANION GAP 4 MMOL/L (8-16); BILIRUBIN,TOTAL 0.5 mg/dL (0.2-1); BLOOD UREA NITROGEN 13.5 mg/dL (7-18); CALCIUM 8.9 mg/dL (8.5-10.1); CHLORIDE 114 mmol/L (98-107); CO2 25 mmol/L (21-32); CREATININE 0.9 mg/dL (0.55-1.3); GLUCOSE,RANDOM 92 mg/dL (74-106); POTASSIUM 4.3 mmol/L (3.5-5.1); SGOT/AST 8 U/L (15-37); SGPT/ALT 11 U/L (13-61); SODIUM 143 mmol/L (136-145); TOT PROT 5.8 g/dl (6.4-8.2)
[2018-10-26] MEDS ORDERED: PEG 3350/NA SULF BICARB CL/KCL 4000 ML SOLN.RECON PO ONE (09:00)
--- NOTE | 2018-10-26 12:07 | PN ---
Progress Note, Physician Chief Complaint: no new c/o or bleeding her hb is better no distress - Current Medication List Current Medications: Active Medications Bisacodyl (Dulcolax -) 20 mg PO ONCE ONE Stop: 10/26/18 18:01 Pantoprazole Sodium 80 mg/ (Sodium Chloride) 100 mls @ 10 mls/hr IVPB Q10H [facility] Last Admin: 10/26/18 05:43 Dose: 10 mls/hr Lisinopril (Prinivil) 10 mg PO DAILY [facility] Metoprolol Succinate (Toprol Xl -) 50 mg PO BID [facility] Last Admin: 10/26/18 09:21 Dose: 50 mg - Objective Vital Signs: Vital Signs Temperature 98 F 10/26/18 08:25 Pulse Rate 75 10/26/18 08:25 Respiratory Rate 20 10/26/18 08:25 Blood Pressure 143/77 10/26/18 08:25 O2 Sat by Pulse Oximetry (%) 100 10/25/18 21:00 Constitutional: Yes: Well Nourished, No Distress Eyes: Yes: Conjunctiva Clear HENT: Yes: Atraumatic Neck: Yes: Supple Cardiovascular: Yes: Regular Rate and Rhythm Respiratory: Yes: Regular Gastrointestinal: Yes: Normal Bowel Sounds Extremities: Yes: WNL Integumentary: Yes: WNL Neurological: Yes: WNL Labs: CBC, BMP 10/26/18 06:27 10/26/18 06:27 INR, PTT INR 0.97 (0.83-1.09) 10/24/18 15:05 Problem List - Problems (1) Hypertension Code(s): I10 - ESSENTIAL (PRIMARY) HYPERTENSION (2) Microcytic anemia Code(s): D50.9 - IRON DEFICIENCY ANEMIA, UNSPECIFIED (3) Osteoarthritis Code(s): M19.90 - UNSPECIFIED OSTEOARTHRITIS, UNSPECIFIED SITE Assessment/Plan will do repeat cbc am she is going for uppper and lower endoscopy d/w her proceedures continue replacement
[2018-10-26] MEDS ORDERED: BISACODYL 5 MG TABLET.DR (FP) PO ONE (18:00)
[2018-10-27] MEDS: PANTOPRAZOLE SODIUM 80 MG in SODIUM CHLORIDE 100 ML IVPB SCH ×2 (00:08→11:27)
[2018-10-27 08:38] LABS: BILIRUBIN,TOTAL 0.7 mg/dL (0.2-1); BLOOD UREA NITROGEN 14.9 mg/dL (7-18); CALCIUM 7.5 mg/dL (8.5-10.1); POTASSIUM 4.1 mmol/L (3.5-5.1)
--- NOTE | 2018-10-27 08:57 | PN ---
Progress Note (short form) - Note Progress Note: admitted for anemia-noted incidentally on preop testing for hammertoe surgery received 2 units of PRBC FOBT positive in er has been taking 4+ advils daily for arthritic pains CBC, BMP 10/27/18 06:25 10/27/18 06:25 Vital Signs Period Temp Pulse Resp BP Sys/Germain Pulse Ox Last 24 Hr 98.2 F-98.4 F 73-100 20-20 139-157/48-85 95 S1S2 RRR lungs cta abd soft nontender +bs no edema Anemia Depression HTN Obesity Osteoarthritis h/o CVA without residual deficits going for EGD/colonoscopy today repeat CBC-clotted in lab dc planning pending results
--- NOTE | 2018-10-27 11:49 | PN ---
Progress Note (short form) - Note Progress Note: GI Procedures Note: Please see EGD and colonoscopy reports. No source of anemia found. Several small colon polyps removed. A hiatal hernia was noted. Will need capsule endoscopy as outpatient. Communicated with Dr Roman. No GI objections to discharge. Problem List - Problems (1) Microcytic anemia Code(s): D50.9 - IRON DEFICIENCY ANEMIA, UNSPECIFIED (2) Family history of colon cancer in mother Code(s): Z80.0 - FAMILY HISTORY OF MALIGNANT NEOPLASM OF DIGESTIVE ORGANS (3) Osteoarthritis Code(s): M19.90 - UNSPECIFIED OSTEOARTHRITIS, UNSPECIFIED SITE (5) Fatty liver Code(s): K76.0 - FATTY (CHANGE OF) LIVER, NOT ELSEWHERE CLASSIFIED (6) NSAID long-term use Code(s): Z79.1 - [employer] (CURRENT) USE OF NON-STEROIDAL NON-INFLAM (NSAID) (7) Occult blood in stools Code(s): R19.5 - OTHER FECAL ABNORMALITIES
[2018-10-27 14:24] LABS: BASO % 1.1 % (0-2.0); EOS % 2.2 % (0-4.5); HEMATOCRIT 30.4 % (32.4-45.2); HEMOGLOBIN 9.2 GM/dL (10.7-15.3); LYMPH % 18.9 % (8-40); MCH 20.7 pg (25.7-33.7); MCHC 30.3 g/dl (32.0-36.0); MEAN CELL VOLUME 68.3 fl (80-96); MEAN PLT VOLUME 8.4 fl (7.5-11.1); MONO % 12.8 % (3.8-10.2); PLATELET COUNT 255 K/MM3 (134-434); RBC 4.45 M/mm3 (3.60-5.2); RDW 26.1 % (11.6-15.6); WHITE BLOOD COUNT 5.2 K/mm3 (4.0-10.0)
--- NOTE | 2018-10-27 14:53 | DS ---
Physical Examination Vital Signs: Vital Signs Temperature 97.8 F 10/27/18 12:34 Pulse Rate 73 10/27/18 12:34 Respiratory Rate 20 10/27/18 12:34 Blood Pressure 153/85 10/27/18 12:34 O2 Sat by Pulse Oximetry (%) 98 10/27/18 11:58 Constitutional: Yes: Well Nourished, Calm, Obese Eyes: Yes: EOM Intact HENT: Yes: Normocephalic Neck: Yes: Trachea Midline Cardiovascular: Yes: Regular Rate and Rhythm Respiratory: Yes: CTA Bilaterally Gastrointestinal: Yes: Normal Bowel Sounds, Soft Edema: No Peripheral Pulses WNL: Yes Neurological: Yes: WNL ...Motor Strength: WNL Psychiatric: Yes: WNL Labs: CBC, BMP 10/27/18 13:56 10/27/18 06:25 Discharge Summary Reason For Visit: GASTROINTESTINAL HEMORRHAGE AMENIA Current Active Problems Abnormal laboratory test (Acute) Family history of colon cancer in mother (Acute) Fatty liver (Acute) Hypertension (Acute) Microcytic anemia (Acute) NSAID long-term use (Acute) Occult blood in stools (Acute) Osteoarthritis (Acute) Hospital Course: admitted for anemia and guiac positive stool. received 2 unit prbc transfusion EGD/colonoscopy on 10.27.18 showed few small polyps, but no bleeding source hemoglobin has been stable since admission medically stable to ms home with close out pt follow up and capsule endoscopy as oupt Condition: Fair - Instructions Diet, Activity, Other Instructions: follow up dr Stout next tuesday call for appointment stop all advil/motrin/aleeve/ibuprofen/naproxen may take Tylenol 500 mg very 6 hours for pain Disposition: HOME - Home Medications Comprehensive Discharge Medication List: Ambulatory Orders Atorvastatin Ca [Lipitor] 20 mg PO HS 07/24/13 Lisinopril [Prinivil] 10 mg PO DAILY 07/24/13 Metoprolol Succinate [Toprol XL -] 50 mg PO BID 07/24/13 Pantoprazole Sodium [Protonix -] 40 mg PO DAILY 07/24/13 Escitalopram Oxalate [Lexapro -] 10 mg PO DAILY 10/24/18
[2018-10-27 15:30] VITALS: BP 136/66; PULSE 74; TEMP 98.6
[2018-10-27 19:06] LABS: TRANSGLUTAMINASE IGA < 2 U/mL (0-3); TRANSGLUTAMINASE IGG < 2 U/mL (0-5)
--- NOTE | 2018-10-30 16:29 | PATH ---
Surgical Pathology Report Patient Name: SU BATISTA [facility]. Rec. #: [id number] /Age/Gender: 1945 (Age: 73) / F Account: [id number] Location: [facility] MED/SURG Taken: 10/27/2018 Received: 10/27/2018 Reported: 10/30/2018 Physicians: Malena Adler M.D. Specimen(s) Received A: 2ND PORTION DUODENUM AND DUODENAL BULB B: ANTRUM C: SIGMOID POLYP D: TRANSVERSE COLON POLYP E: DISTAL TRANSVERSE COLON POLYP Clinical History Anemia, occult GI bleeding Postoperative diagnosis: Hiatal hernia, colon polyps, diverticulosis Final Diagnosis A. DUODENUM, SECOND PORTION AND DUODENAL BULB, BIOPSY: DUODENAL MUCOSA WITH MODERATE CHRONIC DUODENITIS, FOCAL INTRAEPITHELIAL LYMPHOCYTOSIS, AND FOCAL MILD VILLOUS BLUNTING. SEE COMMENT. B. STOMACH, ANTRUM, BIOPSY: GASTRIC ANTRAL MUCOSA WITH MODERATE TO SEVERE CHRONIC GASTRITIS. IMMUNOHISTOCHEMICAL STAIN FOR H. PYLORI IS POSITIVE (MANY). C. SIGMOID COLON, POLYP, BIOPSY: HYPERPLASTIC POLYP. D. TRANSVERSE COLON, POLYP, BIOPSY: POLYPOID COLONIC MUCOSA WITH SUPERFICIAL HYPERPLASTIC FEATURES. E. DISTAL TRANSVERSE COLON, POLYP, BIOPSY: POLYPOID COLONIC MUCOSA WITH FOCAL MILD SUPERFICIAL HYPERPLASTIC FEATURES. Comment: The finding is nonspecific and may be seen in chronic duodenitis and gluten sensitive enteropathy (celiac disease). In the presence of chronic inflammation, findings are likely related to chronic duodenitis. Serological correlations are suggested if clinically indicated. Electronically Signed Antoinette Marin M.D. Gross Description A. Received in formalin, labeled "biopsy second portion of duodenum and duodenal bulb" are 3 hollis, irregular portions of soft tissue ranging from 0.3-0.4 cm. in greatest dimension. The specimens are submitted in toto in one cassette. B. Received in formalin, labeled "biopsy antrum" are 4 hollis, irregular portions of soft tissue ranging from 0.3-0.4 cm. in greatest dimension. The specimens are submitted in toto in one cassette. C. Received in formalin, labeled "biopsy sigmoid polyp" are 2 hollis, irregular portions of soft tissue averaging 0.3 cm. in greatest dimension. The specimens are submitted in toto in one cassette. D. Received in formalin, labeled "biopsy transverse colon polyp" are 2 hollis, irregular portions of soft tissue averaging 0.2 cm. in greatest dimension. The specimens are submitted in toto in one cassette. E. Received in formalin, labeled "biopsy distal transverse colon polyp" is a hollis, irregular portion of soft tissue measuring 0.3 cm. in greatest dimension. The specimen is submitted in toto in one cassette. 10/27/201810/27/2018
== END 2018-10-27 15:58 | disposition home or self-care (01) | DRG 812 ==
LOC: JER 12:27 → JERBED 22:08 → J8W 10-25 02:11
PROVIDERS: ADMIT Internal Medicine; ATTEND Internal Medicine
PROC: 30233N1 Transfusion of Nonautologous Red Blood Cells into Peripheral Vein, Percutaneous Approach (ICD-10-PCS; 2018-10-25)
PROC: 0DBL8ZX Excision of Transverse Colon, Via Natural or Artificial Opening Endoscopic, Diagnostic (ICD-10-PCS; 2018-10-27)
PROC: 0DB68ZX Excision of Stomach, Via Natural or Artificial Opening Endoscopic, Diagnostic (ICD-10-PCS; 2018-10-27)
PROC: 0DBN8ZX Excision of Sigmoid Colon, Via Natural or Artificial Opening Endoscopic, Diagnostic (ICD-10-PCS; principal; 2018-10-27 09:30)
DX: D50.9 Iron deficiency anemia, unspecified (principal); Z68.41 Body mass index [BMI] 40.0-44.9, adult; I10 Essential (primary) hypertension; Z88.0 Allergy status to penicillin; E66.9 Obesity, unspecified; E78.5 Hyperlipidemia, unspecified; Z86.73 Personal history of transient ischemic attack (TIA), and cerebral infarction without residual deficits; F41.9 Anxiety disorder, unspecified; Z87.891 Personal history of nicotine dependence; F32.9 Major depressive disorder, single episode, unspecified; K76.0 Fatty (change of) liver, not elsewhere classified; Z79.1 Long term (current) use of non-steroidal anti-inflammatories (NSAID); K70.0 Alcoholic fatty liver; M19.90 Unspecified osteoarthritis, unspecified site; K44.9 Diaphragmatic hernia without obstruction or gangrene; K63.5 Polyp of colon; K57.90 Diverticulosis of intestine, part unspecified, without perforation or abscess without bleeding; R19.5 Other fecal abnormalities
CPT/HCPCS: 36415; 36430; 36511; 71046-TC-FY; 80048; 80053; 81003; 82272; 82550; 82728; 83516; 83540; 83550; 83735; 84100; 84155; 84165; 84484; 85025; 85027; 85044; 85610; 86140; 86850; 86900; 86901; 86922; 88305-TC; 93005; 93010; 99285-25; P9038; P9058